=== PATIENT | female | born 1995 | race Caucasian/White ===

== ENCOUNTER 2019-04-24 20:18 | Emergency (ER) | payer BC ==
[~2019-04-24] VITALS: Ht 152.4 cm; Wt 56.7 kg
[2019-04-24 20:28] VITALS: BP_SYST 123
[2019-04-25 00:52] VITALS: BP_SYST 121
== END 2019-04-25 00:52 | disposition home or self-care (01) ==
LOC: SED 20:18
DX: S01.111A Laceration without foreign body of right eyelid and periocular area, initial encounter (principal); W54.0XXA Bitten by dog, initial encounter; Y93.89 Activity, other specified; Y92.89 Other specified places as the place of occurrence of the external cause; Y99.8 Other external cause status
CPT/HCPCS: 99283